=== PATIENT | male | born 1995 | race Caucasian/White ===

== ENCOUNTER 2024-04-15 05:34 | Emergency (ER) | payer OTHER ==
[2024-04-15 05:42] VITALS: BP 121/81; PULSE 64; RESP 20; TEMP 98.1; BMI 35.2
[2024-04-15] MEDS ORDERED: IBUPROFEN 600 MG TABLET (FP) PO ONE (05:55)
[2024-04-15] MEDS: IBUPROFEN 600 MG TABLET (FP) PO ONE (05:58)
== END 2024-04-15 07:03 | disposition home or self-care (01) ==
LOC: JER 05:34
DX: S93.491A Sprain of other ligament of right ankle, initial encounter (principal); X50.1XXA Overexertion from prolonged static or awkward postures, initial encounter; Y99.0 Civilian activity done for income or pay
CPT/HCPCS: 73610-TC-RT-FY; 73630-TC-RT-FY; 99283-25